=== PATIENT | female | born 1995 ===

== ENCOUNTER 2018-12-14 12:43 | Emergency (ER) | payer OTHER ==
[2018-12-14 12:55] VITALS: BP 119/75; PULSE 82; RESP 18; TEMP 98.6; O2SAT 100
--- NOTE | 2018-12-14 13:17 | C.PDOC ---
History Of Present Illness 23 y/o female presents to the ER complaining of lower back pain which has been present since yesterday. 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 Patient reports that she took hot showers which made the pain worse. She notes that she did not take any medications for the pain.Denies having dysuria, hematuria, and bowel/bladder incontinence. Time Seen by Provider: 12/14/18 13:03 Chief Complaint (Nursing): Back Pain History Per: Patient History/Exam Limitations: no limitations Onset/Duration Of Symptoms: Days Current Symptoms Are (Timing): Still Present Severity: Moderate Past Medical History Reviewed: Historical Data, Nursing Documentation, Vital Signs Vital Signs: Last Vital Signs Temp 98.6 F 12/14/18 12:50 Pulse 82 12/14/18 12:50 Resp 18 12/14/18 12:50 BP 119/75 12/14/18 12:50 Pulse Ox 100 12/14/18 12:50 - Medical History PMH: No Chronic Diseases Surgical History: Appendectomy Family History: States: No Known Family Hx - Social History Hx Alcohol Use: No Hx Substance Use: No - Immunization History Hx Tetanus Toxoid Vaccination: No Hx Influenza Vaccination: No Hx Pneumococcal Vaccination: No Review Of Systems Except As Marked, All Systems Reviewed And Found Negative. Genitourinary: Negative for: Dysuria, Incontinence, Hematuria Musculoskeletal: Positive for: Back Pain Physical Exam - Physical Exam Appears: Other ( female, mild distress) Skin: Normal Color, Warm, Dry Head: Atraumatic, Normacephalic Eye(s): bilateral: Normal Inspection Nose: Normal Oral Mucosa: Moist Neck: Supple Chest: Symmetrical Cardiovascular: Rhythm Regular Respiratory: Normal Breath Sounds, No Rales, No Rhonchi, No Wheezing Gastrointestinal/Abdominal: Normal Exam, Soft, No Tenderness, No Guarding, No Rebound Back: Other (tenderness to bilateral sacroiliac region) Extremity: Normal ROM, No Tenderness, No Swelling Neurological/Psych: Oriented x3, Normal Speech, Normal Motor, Normal Sensation ED Course And Treatment O2 Sat by Pulse Oximetry: 100 (RA) Pulse Ox Interpretation: Normal Medical Decision Making Medical Decision Making: low back strain no neuropathy Disposition Doctor Will See Patient In The: Office Counseled Patient/Family Regarding: Studies Performed, Diagnosis - Disposition Referrals: [facility] [Outside] [facility] [Outside] [facility] [Outside] [facility] [Outside] Disposition: HOME/ ROUTINE Disposition Time: 13:16 Condition: GOOD Additional Instructions: bolsa de hielo 1/2 hora por hora, nada caliente Ibuprofeno/Advil 400-600 mg cada 6 horas rashida necessarrio no levanta nada pesada 1 semana Instructions: Lumbar Muscle Strain (DC) Forms: [employer] (Gabonese), Work Excuse Print Language: GREENLANDIC - Clinical Impression Clinical Impression: Low back strain - Scribe Statement The provider has reviewed the documentation as recorded by the Scribe Dickson Hoyt Provider Attestation: All medical record entries made by the Scribe were at my direction and personally dictated by me. I have reviewed the chart and agree that the record accurately reflects my personal performance of the history, physical exam, medical decision making, and the department course for this patient. I have also personally directed, reviewed, and agree with the discharge instructions and disposition.
== END 2018-12-14 13:51 | disposition home or self-care (01) ==
LOC: C.ER 12:43
DX: S39.012A Strain of muscle, fascia and tendon of lower back, initial encounter (principal); X50.0XXA Overexertion from strenuous movement or load, initial encounter; Y93.E2 Activity, laundry; Y92.89 Other specified places as the place of occurrence of the external cause; Y99.0 Civilian activity done for income or pay

== ENCOUNTER 2018-12-20 22:33 | Emergency (ER) | payer SELFPAY ==
[2018-12-20 22:40] VITALS: BP 129/84; PULSE 86; TEMP 97.8; O2SAT 100
--- NOTE | 2018-12-20 23:45 | C.PDOC ---
History Of Present Illness 23 year old female seen on 12/14/18 for back pain discharged on motrin presents today stating she still has back pain and now has developed throat pain. Patient she has been taking motrin every 4 hours but last took today at 0900. 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 Denies fever, chills, abdominal pain, chest pain, nausea, vomiting, or urinary symptoms. Chief Complaint (Nursing): ENT Problem History Per: Patient History/Exam Limitations: no limitations Injury Occurred (Timing): Days Ago: (12/14/18) Onset/Duration Of Symptoms: Days Patient States: Other (Lifting heavy object) Recent travel outside of the [place]: No Past Medical History Reviewed: Historical Data, Nursing Documentation, Vital Signs Vital Signs: Last Vital Signs Temp 97.8 F 12/20/18 22:38 Pulse 86 12/20/18 22:38 Resp 16 12/20/18 22:38 BP 129/84 12/20/18 22:38 Pulse Ox 100 12/20/18 22:38 Surgical History: Appendectomy Family History: States: No Known Family Hx - Social History Hx Alcohol Use: No Hx Substance Use: No - Immunization History Hx Tetanus Toxoid Vaccination: No Hx Influenza Vaccination: No Hx Pneumococcal Vaccination: No Review Of Systems Constitutional: Negative for: Fever, Chills ENT: Positive for: Throat Pain. Negative for: Mouth Swelling Cardiovascular: Negative for: Chest Pain, Palpitations Respiratory: Negative for: Cough, Shortness of Breath Gastrointestinal: Negative for: Nausea, Vomiting, Diarrhea Genitourinary: Negative for: Dysuria, Hematuria Musculoskeletal: Positive for: Back Pain Skin: Negative for: Rash Neurological: Negative for: Weakness, Numbness, Dizziness Physical Exam - Physical Exam Appears: Well, Non-toxic Skin: Normal Color, Warm, Dry Head: Atraumatic, Normacephalic Eye(s): bilateral: Normal Inspection Ear(s): Bilateral: Normal Nose: Normal Oral Mucosa: Moist Throat: Normal (No swelling or injection), No Exudate, Other (Airway patent) Neck: Normal ROM, Supple Chest: Symmetrical, No Tenderness Cardiovascular: Rhythm Regular Respiratory: Normal Breath Sounds, No Rales, No Rhonchi, No Wheezing Gastrointestinal/Abdominal: Soft, No Tenderness Back: No CVA Tenderness, No Vertebral Tenderness, Paraspinal Tenderness (Lumbar), No Straight Leg Raising, Other (Ambulatory with upright steady gait) Extremity: Normal ROM (x4) Neurological/Psych: Oriented x3 ED Course And Treatment O2 Sat by Pulse Oximetry: 100 (Room air) Pulse Ox Interpretation: Normal Medical Decision Making Medical Decision Making: Will treat with pain meds and advise to follow up as needed. 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 - Scribe Statement The provider has reviewed the documentation as recorded by the Scribdemetrio Jackson All medical record entries made by the Jossyibdemetrio were at my direction and personally dictated by me. I have reviewed the chart and agree that the record accurately reflects my personal performance of the history, physical exam, medical decision making, and the department course for this patient. I have also personally directed, reviewed, and agree with the discharge instructions and disposition.
[2018-12-21 00:32] VITALS: RESP 20
== END 2018-12-21 00:31 | disposition home or self-care (01) ==
LOC: C.ER 22:33
DX: J02.9 Acute pharyngitis, unspecified (principal); S39.012A Strain of muscle, fascia and tendon of lower back, initial encounter; X50.0XXA Overexertion from strenuous movement or load, initial encounter; Y92.89 Other specified places as the place of occurrence of the external cause; Y99.0 Civilian activity done for income or pay
CPT/HCPCS: 81025; 96372; 99283; J1885

== ENCOUNTER 2018-12-21 22:00 | Emergency (ER) | payer SELFPAY ==
[2018-12-21 22:13] VITALS: BP 142/85; PULSE 69; RESP 20; TEMP 98.5; O2SAT 100
--- NOTE | 2018-12-21 23:54 | C.PDOC ---
History Of Present Illness 23 year old female seen yesterday for back pain and sore throat. she had back pain from lifting heavy bags at work. she was given tramadol for her back pain and discharged. she returns today because she has been feeling worse with weakness, body aches, nausea and sore throat. she also reports that she took tramadol once this morning and shortly after she started having itching all over her body. she denies fever, chills, sob, abd pain, changes in urination or diarrhea. HPI: Influenza Time Seen by Provider: 12/21/18 22:29 Chief Complaint: Flu-like Symptoms History Per: Patient Exam Limitations: no limitations Have you had recent travel within the past 21 days to any of the following countries: [place], [place], [place] or [place]?: No Onset/Duration Of Symptoms: Hrs Symptoms include: bodyaches, sore throat, other (Itchiness, lightheadedness, Weakness) Sick Contacts (Context): None Past Medical History Reviewed: Historical Data, Nursing Documentation, Vital Signs Vital Signs: Last Vital Signs Temp 98.5 F 12/21/18 22:08 Pulse 69 12/21/18 22:08 Resp 20 12/21/18 22:08 BP 142/85 12/21/18 22:08 Pulse Ox 100 12/21/18 22:08 Surgical History: Appendectomy Family History: States: Unknown Family Hx - Social History Hx Alcohol Use: No Hx Substance Use: No - Immunization History Hx Tetanus Toxoid Vaccination: No Hx Influenza Vaccination: No Hx Pneumococcal Vaccination: No Review Of Systems Constitutional: Positive for: Weakness. Negative for: Fever, Chills Eyes: Negative for: Pain, Redness ENT: Positive for: Throat Pain. Negative for: Mouth Swelling Cardiovascular: Positive for: Light Headedness. Negative for: Chest Pain, Palpitations Respiratory: Negative for: Cough, Shortness of Breath Gastrointestinal: Negative for: Nausea, Vomiting, Diarrhea Genitourinary: Negative for: Dysuria, Hematuria Musculoskeletal: Positive for: Other (Body aches). Negative for: Back Pain Skin: Positive for: Other (Itching). Negative for: Rash Neurological: Negative for: Weakness, Numbness Physical Exam - Physical Exam Appears: Non-toxic Skin: Normal Color, Warm, No Rash Head: Atraumatic, Normacephalic Eye(s): bilateral: Normal Inspection, PERRL, EOMI Ear(s): Bilateral: Normal Nose: Discharge Oral Mucosa: Moist Throat: Normal, No Erythema, No Exudate Neck: Normal ROM, Supple Chest: Symmetrical, No Tenderness Cardiovascular: Rhythm Regular Respiratory: Normal Breath Sounds, No Accessory Muscle Use, Other (Normal inspiratory effort) Gastrointestinal/Abdominal: Soft, No Tenderness Extremity: Normal ROM (x4) Neurological/Psych: Oriented x3, Normal Speech, Normal Cranial Nerves (Grossly intact) Medical Decision Making Medical Decision Making: Flu swab, rapid strep, and CXR all negative. Patient instructed to stop tramadol, given motrin and benadryl here. Patient also given number for clinic for future follow up. - ECG O2 Sat by Pulse Oximetry: 100 - Radiology X-Ray: Interpreted by Me, Viewed By Me X-Ray Interpretation: No Acute Disease Disposition Counseled Patient/Family Regarding: Studies Performed, Diagnosis, Need For Followup - Disposition Referrals: 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 - Scribe Statement The provider has reviewed the documentation as recorded by the Scribe Mio Jackson All medical record entries made by the Scribe were at my direction and personally dictated by me. I have reviewed the chart and agree that the record accurately reflects my personal performance of the history, physical exam, medical decision making, and the department course for this patient. I have also personally directed, reviewed, and agree with the discharge instructions and disposition.
--- NOTE | 2018-12-22 08:21 | RAD ---
HISTORY: pneumonia COMPARISON: None available TECHNIQUE: Chest PA and lateral FINDINGS: LUNGS: No focal consolidation. Please note that chest x-ray has limited sensitivity for the detection of pulmonary masses. PLEURA: No significant pleural effusion identified. No definite pneumothorax . CARDIOVASCULAR: The cardiomediastinal silhouette appears within normal limits of size. No atherosclerotic calcification present. OSSEOUS STRUCTURES: No acute osseous abnormality identified. VISUALIZED UPPER ABDOMEN: Unremarkable. OTHER FINDINGS: None. IMPRESSION: No focal consolidation.
== END 2018-12-22 00:09 | disposition home or self-care (01) ==
LOC: C.ER 22:00
DX: J11.1 Influenza due to unidentified influenza virus with other respiratory manifestations (principal); T40.4X5A Adverse effect of other synthetic narcotics, initial encounter

== ENCOUNTER 2019-04-03 22:02 | Emergency (ER) | payer SELFPAY ==
[2019-04-03 22:21] VITALS: BMI 29.4
[2019-04-03 22:25] VITALS: BP 130/85; RESP 18; O2SAT 100
--- NOTE | 2019-04-03 23:18 | C.PDOC ---
History Of Present Illness 24 year old female presents with friend stating she feels drowsy and malaise after taking two tablets of her friend's antivert that was unknowingly in an advil bottle. Patient's friend states she has vertigo so she keeps her antivert with her advil so she remembers to take them, patient was not aware they were in the bottle. Denies headache, chest pain, nausea, vomiting, or SOB. Patient also reports Hx of constipation, reports no bowel movement in 3 days. Denies abdominal pain. Time Seen by Provider: 04/03/19 22:33 Chief Complaint (Nursing): Medical Clearance History Per: Patient History/Exam Limitations: no limitations Onset/Duration Of Symptoms: Hrs Current Symptoms Are (Timing): Still Present Recent travel outside of the [place]: No Past Medical History Reviewed: Historical Data, Nursing Documentation, Vital Signs Vital Signs: Last Vital Signs Temp 98.1 F 04/03/19 22:21 Pulse 88 04/03/19 22:21 Resp 18 04/03/19 22:21 BP 130/85 04/03/19 22:21 Pulse Ox 100 04/03/19 22:21 Primary Care Provider: FAMILY PROVIDER,NO Surgical History: Appendectomy Family History: States: Unknown Family Hx - Social History Hx Alcohol Use: No Hx Substance Use: No - Immunization History Hx Tetanus Toxoid Vaccination: No Hx Influenza Vaccination: No Hx Pneumococcal Vaccination: No Review Of Systems Constitutional: Positive for: Malaise, Other (Drowsy). Negative for: Fever Cardiovascular: Negative for: Chest Pain, Palpitations Respiratory: Negative for: Cough, Shortness of Breath Gastrointestinal: Negative for: Nausea, Vomiting Neurological: Negative for: Weakness, Numbness Physical Exam - Physical Exam Appears: Non-toxic, No Acute Distress, Other (Slightly drowsy) Skin: Normal Color, Warm Head: Atraumatic, Normacephalic Eye(s): bilateral: Normal Inspection, PERRL, EOMI Neck: Normal, Supple Cardiovascular: Rhythm Regular Respiratory: Normal Breath Sounds, No Accessory Muscle Use Gastrointestinal/Abdominal: Soft, No Tenderness Extremity: Normal ROM (x4) Neurological/Psych: Oriented x3, Normal Speech Gait: Steady ED Course And Treatment O2 Sat by Pulse Oximetry: 100 (Room air) Pulse Ox Interpretation: Normal Progress Note: Patient is resting comfortably in no acute distress, ambulatory with steady gait, vitals are stable, will discharge home with Rx, advised to rest at home or return if symptoms return or worsen. 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 - Scribe Statement The provider has reviewed the documentation as recorded by the Scribdemetrio Jackson All medical record entries made by the Jossyibdemetrio were at my direction and personally dictated by me. I have reviewed the chart and agree that the record accurately reflects my personal performance of the history, physical exam, medical decision making, and the department course for this patient. I have also personally directed, reviewed, and agree with the discharge instructions and disposition.
[2019-04-03 23:43] VITALS: PULSE 68; TEMP 98
== END 2019-04-03 23:43 | disposition home or self-care (01) ==
LOC: C.ER 22:02
DX: T45.0X1A Poisoning by antiallergic and antiemetic drugs, accidental (unintentional), initial encounter (principal); K59.03 Drug induced constipation; Y92.89 Other specified places as the place of occurrence of the external cause